=== PATIENT | male | born 1965 | race Two or more races ===

== ENCOUNTER 2022-10-08 04:44 | Emergency (ER) | payer MEDICAID ==
[~2022-10-08] VITALS: Ht 177.8 cm; Wt 95.0 kg
[2022-10-08 05:24] LABS: Basophils # (auto) 0.1 10 ^3/uL (0-0.2); Basophils % (auto) 1.4 % (0.0-2.0); Eosinophils # (auto) 0.2 10 ^3/uL (0-0.8); Eosinophils % (auto) 2.2 % (0.0-7.0); Hematocrit 35.5 % (41.0-53.0); Hemoglobin 11.7 g/dL (13.5-17.5); Lymphocytes # (auto) 1.9 10 ^3/uL (0.4-5.4); Lymphocytes % (auto) 21.1 % (10.0-50.0); Mean Corpuscular Hemoglobin 32.3 pg (28.0-32.0); Mean Corpuscular Hgb Conc. 32.9 g/dL (32.0-36.0); Mean Corpuscular Volume 98.4 fL (80.0-100.0); Monocytes # (auto) 0.6 10 ^3/uL (0-1.3); Monocytes % (auto) 6.4 % (0.0-12.0); Neutrophils # (auto) 6.2 10 ^3/uL (1.6-8.6); Neutrophils % (auto) 68.9 % (37.0-80.0); Nucleated Red Blood Cells % 0.1 %; Red Blood Cells 3.61 10^6/uL (4.5-5.90); Red Cell Distribution Width 14.1 % (11.8-14.3)
[2022-10-08 05:38] LABS: INR 1.18 (0.9-1.15); Partial Thromboplastin Time 28.2 sec (24.6-33.4)
[2022-10-08 05:40] LABS: Albumin 3.8 g/dL (3.4-5.0); Calcium 8.9 mg/dL (8.5-10.1); Magnesium 2.2 mg/dL (1.6-2.6)
[2022-10-08 05:46] LABS: BUN/Creatinine Ratio 15.7; Bilirubin, Total 0.8 mg/dL (0.2-1.0); Total Protein 6.9 g/dL (6.4-8.2)
[2022-10-08] MEDS ORDERED: ALBUTEROL MEDNEB 2.5 mg/3ml NEB ONE (06:22)
[2022-10-08] MEDS ORDERED: IPRATROPIUM BROM 0.5 MG/2.5ML INH SOL NEB ONE (06:30)
[2022-10-08] MEDS ORDERED: ALBUTEROL SULF 2.5 MG/0.5ML(0.5%) NEB SOLN NEB ONE (06:30)
[2022-10-08 06:35] VITALS: BP 134/67
[2022-10-08] MEDS ORDERED: FURO1TAB33 PO (08:51)
[2022-10-08] MEDS ORDERED: ALBU108A5 IN (08:51)
== END 2022-10-08 08:54 | disposition home or self-care (01) ==
LOC: ER 04:44 → EDBD 04:44 → ER 08:54
DX: J44.1 Chronic obstructive pulmonary disease with (acute) exacerbation (principal); I50.9 Heart failure, unspecified
CPT/HCPCS: 36415; 71045; 80053; 83735; 83880; 84484; 85025; 85610; 85730; 93005; 94640; 99285; J7644

== ENCOUNTER 2022-10-09 14:50 | Emergency (ER) | payer MEDICAID ==
[~2022-10-09] VITALS: Ht 170.2 cm; Wt 102.7 kg
[~2022-10-09 14:50] MED LIST: ALBU108A5 IN; FURO1TAB33 PO
[2022-10-09 15:38] LABS: Basophils # (auto) 0.1 10 ^3/uL (0-0.2); Basophils % (auto) 1.1 % (0.0-2.0); Eosinophils # (auto) 0.3 10 ^3/uL (0-0.8); Eosinophils % (auto) 3.3 % (0.0-7.0); Hematocrit 34.1 % (41.0-53.0); Hemoglobin 11.2 g/dL (13.5-17.5); Lymphocytes # (auto) 1.8 10 ^3/uL (0.4-5.4); Lymphocytes % (auto) 21.8 % (10.0-50.0); Mean Corpuscular Hemoglobin 32.4 pg (28.0-32.0); Mean Corpuscular Hgb Conc. 32.9 g/dL (32.0-36.0); Mean Corpuscular Volume 98.2 fL (80.0-100.0); Monocytes # (auto) 0.8 10 ^3/uL (0-1.3); Monocytes % (auto) 9.2 % (0.0-12.0); Neutrophils # (auto) 5.4 10 ^3/uL (1.6-8.6); Neutrophils % (auto) 64.6 % (37.0-80.0); Nucleated Red Blood Cells % 0.1 %; Red Blood Cells 3.47 10^6/uL (4.5-5.90); White Blood Cell 8.3 10^3/uL (4.4-10.8)
[2022-10-09 15:59] LABS: Albumin 3.3 g/dL (3.4-5.0); Magnesium 2.2 mg/dL (1.6-2.6); Potassium 4.4 mmol/L (3.5-5.1)
[2022-10-09 16:01] LABS: BUN/Creatinine Ratio 12.9
[2022-10-09 16:02] LABS: Bilirubin, Total 0.7 mg/dL (0.2-1.0); Total Protein 6.7 g/dL (6.4-8.2)
[2022-10-10] MEDS ORDERED: FUROSEMIDE 40 MG/4 ML VIAL IV ONE (08:30)
[2022-10-10 12:56] VITALS: BP 128/62
== END 2022-10-10 13:09 | disposition home or self-care (01) ==
LOC: ER 14:50 → EDBD 14:50 → ER 10-10 13:09
DX: I11.0 Hypertensive heart disease with heart failure (principal); I50.9 Heart failure, unspecified; J44.9 Chronic obstructive pulmonary disease, unspecified; Z88.6 Allergy status to analgesic agent
CPT/HCPCS: 36415; 71045; 80053; 83605; 83735; 83880; 84484; 85025; 93005; 96374; 99285; J1940

== ENCOUNTER 2023-11-12 01:47 | Inpatient (IN) | payer MEDICAID ==
[~2023-11-12] VITALS: Ht 177.8 cm; Wt 95.6 kg
[2023-11-12 02:34] LABS: Basophils # (auto) 0.1 10 ^3/uL (0-0.2); Basophils % (auto) 0.7 % (0.0-2.0); Eosinophils # (auto) 0.1 10 ^3/uL (0-0.8); Hemoglobin 10.2 g/dL (13.5-17.5); Nucleated Red Blood Cells % 0.1 %
[2023-11-12 02:35] LABS: Eosinophils % (auto) 0.9 % (0.0-7.0); Hematocrit 33.3 % (41.0-53.0); Lymphocytes # (auto) 0.9 10 ^3/uL (0.4-5.4); Lymphocytes % (auto) 8.3 % (10.0-50.0); Mean Corpuscular Hemoglobin 29.1 pg (28.0-32.0); Mean Corpuscular Hgb Conc. 30.7 g/dL (32.0-36.0); Mean Corpuscular Volume 94.8 fL (80.0-100.0); Monocytes % (auto) 9.1 % (0.0-12.0); Neutrophils # (auto) 8.9 10 ^3/uL (1.6-8.6); Red Blood Cells 3.51 10^6/uL (4.5-5.90)
[2023-11-12 02:50] LABS: Alanine Aminotransferase 25 U/L (7-40); Albumin 3.3 g/dL (3.2-4.8); Alkaline Phosphatase 173 U/L (46-116); Anion Gap 6 (5-15); Aspartate Aminotransferase 49 U/L (13-40); BUN/Creatinine Ratio 19.3 (10.0-20.0); Blood Urea Nitrogen 16 mg/dL (9-23); Carbon Dioxide 25 mmol/L (20-30); Chloride 109 mmol/L (98-107); Glucose 121 mg/dL (74-106); Potassium 4.1 mmol/L (3.5-5.1); Sodium 140 mmol/L (136-145)
[2023-11-12 02:51] LABS: Bilirubin, Total 1.3 mg/dL (0.2-1.0); Total Protein 6.7 g/dL (5.7-8.2)
[2023-11-12] MEDS: FUROSEMIDE 100 MG/10ML VIAL IV ONE (03:00)
[2023-11-12] MEDS ORDERED: ALBUTEROL SULF 2.5 MG/0.5ML(0.5%) NEB SOLN NEB PRN (05:30)
[2023-11-12] MEDS ORDERED: ONDANSETRON HCL 4 MG/2 ML VIAL IV PRN (05:30)
[2023-11-12] MEDS ORDERED: NITROGLYCERIN 0.4 MG SL TAB SL PRN (05:30)
[2023-11-12] MEDS ORDERED: MORPHINE SULFATE INJ 2 MG/ml SYRG IV PRN (05:30)
[2023-11-12] MEDS: FUROSEMIDE 20 MG/2 ML VIAL IV SCH (06:00)
[2023-11-12 10:00] VITALS: PULSE 101; RESP 18; O2SAT 100
[2023-11-12] MEDS: levoFLOXacin 500MG 100 ML IV ONE (10:07)
[2023-11-12] MEDS: ISOSORBIDE DINITRATE 10 MG TAB PO SCH (10:08)
[2023-11-12] MEDS: METOPROLOL TARTRATE 25 MG TAB PO SCH (10:08)
[2023-11-12] MEDS: LISINOPRIL 5 MG TAB PO SCH (10:09)
[2023-11-12 12:41] VITALS: BP 125/81; PULSE 117; RESP 18; TEMP 97.5; O2SAT 98
[2023-11-12] MEDS ORDERED: ACETAMINOPHEN 325 MG TAB PO PRN (13:15)
[2023-11-12 13:43] LABS: Basophils # (auto) 0.1 10 ^3/uL (0-0.2); Basophils % (auto) 0.7 % (0.0-2.0); Eosinophils # (auto) 0.1 10 ^3/uL (0-0.8); Eosinophils % (auto) 1.4 % (0.0-7.0); Hematocrit 32.8 % (41.0-53.0); Hemoglobin 10.3 g/dL (13.5-17.5); Lymphocytes # (auto) 0.8 10 ^3/uL (0.4-5.4); Lymphocytes % (auto) 7.7 % (10.0-50.0); Mean Corpuscular Hemoglobin 29.3 pg (28.0-32.0); Mean Corpuscular Hgb Conc. 31.4 g/dL (32.0-36.0); Mean Corpuscular Volume 93.4 fL (80.0-100.0); Monocytes % (auto) 9.7 % (0.0-12.0); Neutrophils # (auto) 8.1 10 ^3/uL (1.6-8.6); Neutrophils % (auto) 80.5 % (37.0-80.0); Nucleated Red Blood Cells % 0.1 %; Red Blood Cells 3.51 10^6/uL (4.5-5.90); Red Cell Distribution Width 18.1 % (11.8-14.3)
[2023-11-12 13:59] LABS: Alanine Aminotransferase 24 U/L (7-40); Albumin 3.3 g/dL (3.2-4.8); Alkaline Phosphatase 173 U/L (46-116); Anion Gap 5 (5-15); Aspartate Aminotransferase 47 U/L (13-40); BUN/Creatinine Ratio 18.8 (10.0-20.0); Blood Urea Nitrogen 12 mg/dL (9-23); Calcium 8.8 mg/dL (8.5-10.1); Carbon Dioxide 26 mmol/L (20-30); Chloride 109 mmol/L (98-107); Cholesterol 101 mg/dL (< 200); Glucose 106 mg/dL (74-106); HDL Cholesterol 19 mg/dL (40-59); LDL Cholesterol 69 mg/dL (< 100); Potassium 4.4 mmol/L (3.5-5.1); Sodium 140 mmol/L (136-145); Triglycerides 95 mg/dL (< 150)
[2023-11-12 14:00] LABS: Bilirubin, Total 1.5 mg/dL (0.2-1.0); Total Protein 6.5 g/dL (5.7-8.2)
[2023-11-12 14:01] LABS: INR 1.26 (0.9-1.15); Partial Thromboplastin Time 27.3 SEC (24.5-34.5)
[2023-11-12 14:22] LABS: Magnesium 1.8 mg/dL (1.6-2.6)
[2023-11-12] MEDS ORDERED: LISI-275 PO (14:43)
[2023-11-12] MEDS ORDERED: POTA-220 PO (14:43)
[2023-11-12] MEDS ORDERED: FURO40TA4 PO (14:43)
[2023-11-12] MEDS ORDERED: ISOS10TA2 PO (14:43)
[2023-11-12] MEDS ORDERED: CARV3.1240 PO (14:43)
[2023-11-12] MEDS ORDERED: DOXY100C4 PO (14:43)
[2023-11-12] MEDS ORDERED: MET25T PO (14:43)
[2023-11-12] MEDS ORDERED: ASPI-665 PO (14:43)
[2023-11-12] MEDS ORDERED: ALBU108A5 INH (14:45)
[2023-11-12 19:30] VITALS: PULSE 113
[2023-11-12 20:28] VITALS: BP 126/81; PULSE 113; RESP 19; TEMP 98.2; O2SAT 94
[2023-11-12 21:00] VITALS: BP 126/81; PULSE 113; RESP 19; TEMP 98.2; O2SAT 94
[2023-11-12] MEDS: FUROSEMIDE 40 MG/4 ML VIAL IV SCH (22:08)
[2023-11-12] MEDS: ERGOCALCIFEROL 50,000 UNIT(1.25MG) CAP PO SCH (22:09)
[2023-11-13] VITALS (12 sets, daily range): BP systolic 117–145; BP diastolic 69–92; PULSE 59–117; RESP 18–22; TEMP 97.6–98.1; O2SAT 94–99
[2023-11-13 06:04] LABS: Basophils # (auto) 0.1 10 ^3/uL (0-0.2); Basophils % (auto) 0.9 % (0.0-2.0); Eosinophils # (auto) 0.1 10 ^3/uL (0-0.8); Eosinophils % (auto) 1.4 % (0.0-7.0); Hematocrit 33.5 % (41.0-53.0); Hemoglobin 10.4 g/dL (13.5-17.5); Lymphocytes # (auto) 1.2 10 ^3/uL (0.4-5.4); Lymphocytes % (auto) 11.4 % (10.0-50.0); Mean Corpuscular Hemoglobin 29.1 pg (28.0-32.0); Mean Corpuscular Hgb Conc. 31.1 g/dL (32.0-36.0); Mean Corpuscular Volume 93.4 fL (80.0-100.0); Monocytes # (auto) 1.2 10 ^3/uL (0-1.3); Monocytes % (auto) 11.8 % (0.0-12.0); Neutrophils # (auto) 7.8 10 ^3/uL (1.6-8.6); Neutrophils % (auto) 74.5 % (37.0-80.0); Nucleated Red Blood Cells % 0.1 %; Red Blood Cells 3.59 10^6/uL (4.5-5.90); Red Cell Distribution Width 17.8 % (11.8-14.3); White Blood Cell 10.5 10^3/uL (4.4-10.8)
[2023-11-13 06:28] LABS: Alanine Aminotransferase 23 U/L (7-40); Albumin 3.4 g/dL (3.2-4.8); Alkaline Phosphatase 211 U/L (46-116); Anion Gap 7 (5-15); Aspartate Aminotransferase 52 U/L (13-40); BUN/Creatinine Ratio 15.5 (10.0-20.0); Blood Urea Nitrogen 13 mg/dL (9-23); Calcium 9.1 mg/dL (8.5-10.1); Carbon Dioxide 26 mmol/L (20-30); Chloride 107 mmol/L (98-107); Glucose 104 mg/dL (74-106); LDL Cholesterol 67 mg/dL (< 100); Potassium 4.5 mmol/L (3.5-5.1); Sodium 140 mmol/L (136-145); Triglycerides 92 mg/dL (< 150)
[2023-11-13 06:29] LABS: Bilirubin, Total 1.3 mg/dL (0.2-1.0); Cholesterol 100 mg/dL (< 200); HDL Cholesterol 19 mg/dL (40-59); Total Protein 6.7 g/dL (5.7-8.2)
[2023-11-13 06:45] LABS: Magnesium 1.8 mg/dL (1.6-2.6)
[2023-11-13] MEDS: VALSARTAN 80 MG TAB PO SCH (10:14)
[2023-11-13] MEDS: METOPROLOL TARTRATE 25 MG TAB PO ONE (13:24)
[2023-11-13] MEDS: IPRATROPIUM BROM 0.5 MG/2.5ML INH SOL NEB PRN (14:04)
[2023-11-13] MEDS: ALBUTEROL SULF 2.5 MG/0.5ML(0.5%) NEB SOLN NEB PRN (14:04)
[2023-11-13] MEDS: ALPRAZolam 0.25 MG TAB PO PRN (20:42)
[2023-11-13] MEDS: METOPROLOL TARTRATE 25 MG TAB PO SCH (22:15)
[2023-11-13] MEDS: ZOLPIDEM TARTRATE 5 MG TAB PO PRN (22:16)
[2023-11-14] VITALS (8 sets, daily range): BP systolic 106–147; BP diastolic 70–89; PULSE 84–113; RESP 19–22; TEMP 98–98.4; O2SAT 92–97
[2023-11-14 07:16] LABS: Chloride 103 mmol/L (98-107); Potassium 4.9 mmol/L (3.5-5.1); Sodium 137 mmol/L (136-145)
[2023-11-14 07:17] LABS: Anion Gap 8 (5-15); Carbon Dioxide 26 mmol/L (20-30)
[2023-11-14 07:18] LABS: Calcium 9.1 mg/dL (8.5-10.1)
[2023-11-14 07:22] LABS: Glucose 100 mg/dL (74-106)
[2023-11-14 07:23] LABS: BUN/Creatinine Ratio 17.9 (10.0-20.0); Blood Urea Nitrogen 17 mg/dL (9-23)
[2023-11-14 07:43] LABS: Magnesium 1.9 mg/dL (1.6-2.6)
[2023-11-14] MEDS: VALSARTAN 80 MG TAB PO SCH (10:00)
[2023-11-14] MEDS: LORazepam 2MG/ML-1ML VIAL IV PRN (12:05)
[2023-11-14] MEDS: METOPROLOL SUCCINATE XL 50 MG TAB PO ONE (18:13)
[2023-11-15] VITALS (8 sets, daily range): BP systolic 88–129; BP diastolic 63–78; PULSE 62–101; RESP 18–20; TEMP 98.1–98.7; O2SAT 92–97
[2023-11-15 06:25] LABS: Anion Gap 7 (5-15); Carbon Dioxide 31 mmol/L (20-30); Chloride 103 mmol/L (98-107); Potassium 4.1 mmol/L (3.5-5.1); Sodium 141 mmol/L (136-145)
[2023-11-15 06:26] LABS: Calcium 9.3 mg/dL (8.5-10.1)
[2023-11-15 06:31] LABS: BUN/Creatinine Ratio 28.7 (10.0-20.0); Blood Urea Nitrogen 25 mg/dL (9-23); Glucose 83 mg/dL (74-106)
[2023-11-15] MEDS: METOPROLOL SUCCINATE XL 50 MG TAB PO SCH (10:00)
[2023-11-15] MEDS ORDERED: METO-6 PO (15:09)
[2023-11-15] MEDS ORDERED: FURO40TA4 PO (15:09)
[2023-11-15] MEDS ORDERED: VALS1TAB57 PO (15:09)
[2023-11-15] MEDS: FUROSEMIDE 40 MG TAB PO SCH (18:00)
== END 2023-11-15 19:30 | disposition home or self-care (01) | DRG 194 ==
LOC: ER 01:47 → TELE 05:34 → TELE-WESTW 19:11
PROVIDERS: ADMIT Nurse Practitioner; ATTEND Internal Medicine
DX: I11.0 Hypertensive heart disease with heart failure (principal); J96.00 Acute respiratory failure, unspecified whether with hypoxia or hypercapnia; I50.23 Acute on chronic systolic (congestive) heart failure; R18.8 Other ascites; F17.210 Nicotine dependence, cigarettes, uncomplicated; D64.9 Anemia, unspecified; E55.9 Vitamin D deficiency, unspecified; R74.01 Elevation of levels of liver transaminase levels; Z59.00 Homelessness unspecified; Z79.899 Other long term (current) drug therapy; Z91.199 Patient's noncompliance with other medical treatment and regimen due to unspecified reason
CPT/HCPCS: 36415; 71045; 76705; 80048; 80053; 80061; 82306; 82607; 83036; 83605; 83735; 83874; 83880; 84443; 84484; 85025; 85610; 85730; 93005; 93306; 94640; 96365; 99291; G0378; J1956

== ENCOUNTER 2023-11-22 20:10 | Inpatient (IN) | payer MEDICAID ==
[~2023-11-22] VITALS: Ht 177.8 cm; Wt 83.3 kg
[~2023-11-22 20:10] MED LIST changes: -ALBU108A5 IN; +ALBU108A5 INH; +ASPI-665 PO; +CARV3.1240 PO; -FURO1TAB33 PO; +FURO40TA4 PO; +ISOS10TA2 PO; +LISI-275 PO; +METO-6 PO; +POTA-220 PO; +VALS1TAB57 PO
[2023-11-22 20:48] LABS: Basophils # (auto) 0.1 10 ^3/uL (0-0.2); Basophils % (auto) 1.2 % (0.0-2.0); Eosinophils # (auto) 0.2 10 ^3/uL (0-0.8); Eosinophils % (auto) 2.1 % (0.0-7.0); Hematocrit 32.8 % (41.0-53.0); Hemoglobin 10.3 g/dL (13.5-17.5); Lymphocytes % (auto) 11.5 % (10.0-50.0); Mean Corpuscular Hemoglobin 29.9 pg (28.0-32.0); Mean Corpuscular Hgb Conc. 31.4 g/dL (32.0-36.0); Mean Corpuscular Volume 95.1 fL (80.0-100.0); Monocytes # (auto) 1.3 10 ^3/uL (0-1.3); Monocytes % (auto) 15.2 % (0.0-12.0); Neutrophils # (auto) 6.2 10 ^3/uL (1.6-8.6); Nucleated Red Blood Cells % 0.1 %; Red Blood Cells 3.45 10^6/uL (4.5-5.90); Red Cell Distribution Width 18.9 % (11.8-14.3); White Blood Cell 8.8 10^3/uL (4.4-10.8)
[2023-11-22 21:01] LABS: Chloride 106 mmol/L (98-107); Potassium 4.7 mmol/L (3.5-5.1); Sodium 138 mmol/L (136-145)
[2023-11-22 21:02] LABS: Anion Gap 4 (5-15); Carbon Dioxide 28 mmol/L (20-30)
[2023-11-22 21:03] LABS: Calcium 8.8 mg/dL (8.5-10.1)
[2023-11-22 21:06] VITALS: PULSE 107; RESP 20; O2SAT 96
[2023-11-22 21:07] LABS: BUN/Creatinine Ratio 17.8 (10.0-20.0); Blood Urea Nitrogen 16 mg/dL (9-23); Glucose 123 mg/dL (74-106)
[2023-11-22] MEDS: LORazepam 2MG/ML-1ML VIAL IM ONE (21:15)
[2023-11-22] MEDS: FUROSEMIDE 100 MG/10ML VIAL IV ONE (21:48)
[2023-11-22] MEDS ORDERED: MORPHINE SULFATE INJ 2 MG/ml SYRG IV PRN ×2 (22:15→22:45)
[2023-11-22] MEDS ORDERED: DOCUSATE SOD 100 MG CAP PO PRN (22:15)
[2023-11-22] MEDS ORDERED: IPRATROPIUM BROM 0.5 MG/2.5ML INH SOL NEB PRN (22:15)
[2023-11-22] MEDS ORDERED: ACETAMINOPHEN 325 MG TAB PO PRN (22:15)
[2023-11-22] MEDS ORDERED: ALBUTEROL SULF 2.5 MG/0.5ML(0.5%) NEB SOLN NEB PRN (22:15)
[2023-11-22] MEDS ORDERED: ONDANSETRON HCL 4 MG/2 ML VIAL IV PRN (22:15)
[2023-11-22] MEDS ORDERED: HYDROcodone-ACET 5/325MG TAB PO PRN (22:15)
[2023-11-22] MEDS ORDERED: hydrALAZINE HCL 20 MG/ML VL IV PRN (22:15)
[2023-11-22 22:42] VITALS: BP 110/76; PULSE 102; RESP 22; TEMP 98; O2SAT 95
[2023-11-22] MEDS ORDERED: NITROGLYCERIN 0.4 MG SL TAB SL PRN (22:45)
[2023-11-22 22:59] LABS: Amphetamine Screen, Urine Neg (NEGATIVE)
[2023-11-22 23:00] LABS: Barbiturate Scree,Urine Neg (NEGATIVE); Benzodiazephine Screen, Urine Neg (NEGATIVE); Cannabinoid Screen, Urine Neg (NEGATIVE); Cocaine Screen, Urine Neg (NEGATIVE); Opiate Scree,Urine Neg (NEGATIVE); Phencyclidine Screen, Urine Neg (NEGATIVE)
[2023-11-23 00:45] VITALS: BP 125/86; PULSE 101; RESP 24; TEMP 97.8; O2SAT 98
[2023-11-23] MEDS: SODIUM CHLOR 0.9% PF (SALINE LOCK) 10ML VIAL/SYR IV SCH (04:14)
[2023-11-23 05:00] VITALS: BP 115/83; PULSE 96; RESP 18; TEMP 98; O2SAT 98
[2023-11-23 06:15] VITALS: O2SAT 99
[2023-11-23 08:54] VITALS: BP 118/78; PULSE 104; RESP 20; TEMP 98.4; O2SAT 98
[2023-11-23 10:00] VITALS: O2SAT 98
[2023-11-23] MEDS ORDERED: FUROSEMIDE 40 MG/4 ML VIAL IV SCH (10:00)
[2023-11-23] MEDS ORDERED: ASPirin 81 mg TAB PO SCH (10:00)
[2023-11-23] MEDS ORDERED: CARVEDILOL 3.125 MG TAB PO SCH (10:00)
[2023-11-24] MEDS ORDERED: METOPROLOL SUCCINATE XL 50 MG TAB PO SCH (10:00)
[2023-11-24] MEDS ORDERED: LISINOPRIL 5 MG TAB PO SCH (10:00)
[2023-11-28] MEDS ORDERED: FURO1TAB31 PO (08:54)
[2023-11-28] MEDS ORDERED: POTA1TAB4 PO (08:54)
== END 2023-11-23 11:39 | disposition left against medical advice (07) | DRG 194 ==
LOC: EDBD 20:10 → ER 20:10 → EDUNIT# 20:10 → TELE-EAST 22:40 → ER 22:40 → TELE 22:40 → TELE-EAST 23:53 → TELE-CENTR 11-23 02:45
PROVIDERS: ADMIT Nurse Practitioner Family; ATTEND Nurse Practitioner Family
DX: I11.0 Hypertensive heart disease with heart failure (principal); J44.1 Chronic obstructive pulmonary disease with (acute) exacerbation; I50.23 Acute on chronic systolic (congestive) heart failure; F41.9 Anxiety disorder, unspecified; Z53.29 Procedure and treatment not carried out because of patient's decision for other reasons; I34.0 Nonrheumatic mitral (valve) insufficiency; F17.210 Nicotine dependence, cigarettes, uncomplicated; Z59.00 Homelessness unspecified; Z71.6 Tobacco abuse counseling; Z91.148 Patient's other noncompliance with medication regimen for other reason; Z79.899 Other long term (current) drug therapy
CPT/HCPCS: 36415; 71045; 80048; 80307; 80320; 83880; 84484; 85025; 93005; G0378